=== PATIENT | male | born 1960 | race Caucasian/White ===

== ENCOUNTER 2016-12-16 10:22 | Day surgery (SDC) | payer BC, OTHER ==
[2016-12-15 14:19] VITALS: BMI 25.5
[2016-12-16] MEDS ORDERED: MIDAZOLAM HCL 2 MG/2 ML SINGLE DOSE VIAL ONE (13:08)
--- NOTE | 2016-12-16 13:17 | HP ---
History & Physical Update - History History: No Change - Physical Physical: No Change - Assessment Assessment: No Change - Plan Plan: No Change
[2016-12-16] MEDS ORDERED: BUPIVACAINE HCL/PF 0.5% (5MG/ML) 10 ML VIAL ONE (13:42)
[2016-12-16] MEDS ORDERED: ceFAZolin SODIUM 1 GM VIAL ONE (13:56)
[2016-12-16] MEDS ORDERED: PROPOFOL 20 ML ONE ×3 (14:15→14:27)
[2016-12-16] MEDS ORDERED: ceFAZolin SODIUM 1 GM VIAL IVPB ONE (14:20)
[2016-12-16] MEDS ORDERED: BUPIVACAINE HCL/PF 0.5% (5MG/ML) 10 ML VIAL IJ ONE (14:22)
[2016-12-16] MEDS ORDERED: ALBUTEROL SO4 6.7 GM HFA INHALER IH ONE (14:45)
[2016-12-16] MEDS ORDERED: LIDOCAINE HCL 2% (20ML MULTI-DOSE VIAL) NR ONE (15:06)
[2016-12-16] MEDS ORDERED: oxyCODONE HCL 5 MG TABLET PO PRN (15:33)
[2016-12-16] MEDS ORDERED: ONDANSETRON 4 MG/2 ML VIAL IVPUSH PRN (15:33)
[2016-12-16] MEDS ORDERED: LACTATED RINGERS SOLUTION 1,000 ML IV SCH (15:45)
--- NOTE | 2016-12-16 15:49 | OP ---
Operative Note - Note: Operative Date: 12/16/16 Pre-Operative Diagnosis: supraumbilical hernia Operation: epigastric and umbilical hernia repair Findings: 1 cm epigastric and 1.5 cm umbilical hernias Post-Operative Diagnosis: Other (epigastric and umbilical hernias) Surgeon: Jarrod Beach Anesthesia: General Specimens Removed: preperitoneal fat Estimated Blood Loss (mls): 2 Operative Report Dictated: Yes
--- NOTE | 2016-12-16 15:50 | OP ---
DATE OF OPERATION: 12/16/2016 PROCEDURE: Epigastric and umbilical hernia repair. PREOPERATIVE DIAGNOSIS: Supraumbilical hernia. POSTOPERATIVE DIAGNOSIS: Epigastric and umbilical hernias. SURGEON: Jarrod Beach MD ANESTHESIA: General by laryngeal mask airway. FINDINGS AND PROCEDURE: This is a 56-year-old male who presents with 2 months history of a supraumbilical bulge about 2 cm from the umbilicus. On physical exam, patient has a 2-cm soft tissue bulge at the midline 2 cm above the umbilicus, which was non-reducible. Patient was advised repair of the ventral hernia and consent was obtained after discussing the risks, benefits, and alternatives of the procedure. DESCRIPTION: The patient was brought to the operating room and placed in supine position. General anesthesia by laryngeal mask airway was administered. The abdomen was prepped and draped in the usual sterile fashion. Using 0.5% Marcaine, local anesthesia was administered to the proposed incision sites. A 3-mm paraumbilical curvilinear incision at about 0.5 cm superior to the umbilicus was made with a scalpel blade number 15. This dissection was carried down to subcutaneous tissue until the hernia sac containing preperitoneal fat of the epigastric or supraumbilical hernia was encountered. The preperitoneal fat was amputated and tied with a Vicryl 0 suture. The stump was then pushed back to the preperitoneal space. The defect was noted to be very small, about 1 cm in diameter, so instead of using the mesh, it was decided at that time to close the hernia defect primarily with 1 [id number] Prolene 0 suture. Afterwards, the umbilicus was noted to have also a defect and dissection of the umbilicus was done using Metzenbaum scissors combined with Bovie cautery until the hernia sac was encountered. The hernia sac was noted to contain a small piece of omentum. The hernia sac was opened and the small piece of omentum was pushed back to the peritoneal cavity. The hernia defect was noted to be about 1.5 cm in size. This was also repaired primarily with 1 [id number] Prolene 0 suture transversely and 1 simple stitch using also Prolene 0. After the repair was deemed satisfactory, the wound was closed with interrupted Vicryl 3-0 suture for the dermis and continuous Biosyn 4-0 suture for the subcuticular layer. The wound closure was reinforced with Dermabond and the area was covered with pressure dressing. The patient was successfully extubated and transferred to the post-anesthesia care unit in satisfactory condition. Estimated blood loss was about 2 mL. Wound class: Clean. The patient received 1 g of Ancef prior to the start of the procedure. Shady [id number]
[2016-12-16 17:16] VITALS: TEMP 98.8
[2016-12-16 17:36] VITALS: BP 152/89; PULSE 68
--- NOTE | 2016-12-18 14:06 | PATH ---
Surgical Pathology Report Patient Name: RUSS BOND [facility]. Rec. #: [id number] /Age/Gender: 1960 (Age: 56) / M Account: [id number] Location: [facility] SUR[facility]ICAL Taken: 12/16/2016 Received: 12/17/2016 Reported: 12/18/2016 Physicians: Jarrod Beach M.D. Specimen(s) Received PERITONEAL FAT Clinical History Supraumbilical hernia Final Diagnosis PREPERITONEAL FAT, SUPRAUMBILICAL HERNIA REPAIR: BENIGN FATTY TISSUE. Electronically Signed Niko Rich M.D. Gross Description Received in formalin labeled "pre-peritoneal fat" is a 1.2 x 1.0 x 0.3 cm aggregate of yellow, lobulated adipose tissue. The specimen is submitted in toto in one cassette. 12/17/201612/17/2016
== END 2016-12-16 17:58 | disposition home or self-care (01) ==
LOC: JASU-SURG 10:22
PROVIDERS: ATTEND Surgery
PROC: 0WQF0ZZ Repair Abdominal Wall, Open Approach (ICD-10-PCS; 2016-12-16)
PROC: 0WQF0ZZ Repair Abdominal Wall, Open Approach (ICD-10-PCS; principal; 2016-12-16 12:30)
DX: K42.9 Umbilical hernia without obstruction or gangrene (principal); K43.9 Ventral hernia without obstruction or gangrene
CPT/HCPCS: 88304-TC; 94760